=== PATIENT | male | born 1935 | race Caucasian/White ===

== ENCOUNTER 2016-09-21 15:41 | Emergency (ER) | payer OTHER ==
[~2016-09-21 15:41] MED LIST: CHILDRENS CHEWA81 MG PO; CLARITIN10 MG PO; COZAAR50 MG PO; FISH OIL 1,0001 EACH PO; GLUCOPHAGE500 MG PO; HCTZ25 MG PO; LEVAQUIN500 MG PO; LEVOTHYROXINE100 MCG PO; NIASPAN500 MG PO; TOPROL XL25 MG PO
== END 2016-09-21 19:32 | disposition home or self-care (01) ==
LOC: ER 15:41
DX: J06.9 Acute upper respiratory infection, unspecified (principal); I48.91 Unspecified atrial fibrillation; E11.9 Type 2 diabetes mellitus without complications; Z88.0 Allergy status to penicillin
CPT/HCPCS: 71020; 87400; 94664; 96372; 99283-25

== ENCOUNTER 2016-09-24 11:14 | Inpatient (IN) | payer OTHER ==
[~2016-09-24] VITALS: Ht 177.8 cm; Wt 92.0 kg
[2016-09-24 11:59] LABS: BASO # 0.2 10_X3_uL (0.0-0.1); BASO % 2.5 % (0.2-1.2); EOS # 0.1 10_X3_uL (0.0-0.5); EOS % 1.3 % (0.8-7.0); GRAN # 3.3 10_X3_uL (1.8-5.4); GRAN % 48.3 % (34.0-67.9); HEMATOCRIT 41.7 % (40-51); HEMOGLOBIN 15.1 g/dL (13.7-17.5); LYMPH # 2.6 10_X3_uL (1.3-3.6); MEAN CORPUSCULAR HEMOGLOBIN 33.3 pg (27.0-33.0); MEAN CORPUSCULAR HGB CONC 36.2 g/dL (32.0-36.0); MEAN CORPUSCULAR VOLUME 91.9 fL (79-92); MEAN PLATELET VOLUME 10.1 fl (7.5-11.5); MONO # 0.7 10_X3_uL (0.3-0.8); MONO % 9.9 % (5.3-12.2); PLATELET COUNT 151 x10_3/uL (163-337); RED BLOOD COUNT 4.54 x10_6/uL (4.6-6.1); WHITE BLOOD COUNT 6.8 x10_3/uL (4.2-9.1)
[2016-09-24 12:13] LABS: ALKALINE PHOSPHATASE 44 U/L (50-136); ALT/SGPT 12 U/L (7.53-40.17); AST/SGOT 21 U/L (6.66-35.34); CALCIUM 9.3 mg/dL (8.7-10.7); CARBON DIOXIDE 23 mmol/L (21-32); CREATININE 1.1 mg/dL (0.6-1.3); GLUCOSE,RANDOM 121 mg/dL (70-99); POTASSIUM 3.6 mmol/L (3.5-5.1); SODIUM 137 mmol/L (136-145); TOTAL PROTEIN 7.9 gm/dL (6.4-8.2)
[2016-09-24 12:15] LABS: BLOOD UREA NITROGEN 23 mg/dL (7-18)
[2016-09-24 21:25] LABS: URINE BILIRUBIN NEGATIVE (NEGATIVE); URINE BLOOD 1+ (NEGATIVE); URINE GLUCOSE (UA) NORMAL (NORMAL); URINE KETONE NEGATIVE (NEGATIVE); URINE LEUKOCYTE ESTERASE 1+ (NEGATIVE); URINE NITRATE NEGATIVE (NEGATIVE); URINE PROTEIN 1+ (NEGATIVE); UROBILINOGEN NORMAL mg/dL (<1.0)
[2016-09-24 21:48] LABS: URINE BACTERIA TRACE (NONE SEEN)
[2016-09-26 08:12] LABS: HEMATOCRIT 37.7 % (40-51); HEMOGLOBIN 13.3 g/dL (13.7-17.5); MEAN CORPUSCULAR HEMOGLOBIN 32.8 pg (27.0-33.0); MEAN CORPUSCULAR HGB CONC 35.3 g/dL (32.0-36.0); MEAN CORPUSCULAR VOLUME 92.9 fL (79-92); MEAN PLATELET VOLUME 9.7 fl (7.5-11.5); RED BLOOD COUNT 4.06 x10_6/uL (4.6-6.1); RED CELL DISTRIBUTION WIDTH 13.6 % (11.6-14.4); WHITE BLOOD COUNT 4.9 x10_3/uL (4.2-9.1)
[2016-09-26 08:30] LABS: ALBUMIN 3.7 gm/dL (3.4-5.0); ALKALINE PHOSPHATASE 38 U/L (50-136); ALT/SGPT 11 U/L (7.53-40.17); AST/SGOT 23 U/L (6.66-35.34); BILIRUBIN,TOTAL 0.69 mg/dL (0.0-1.0); BLOOD UREA NITROGEN 11 mg/dL (7-18); CALCIUM 8.6 mg/dL (8.7-10.7); CARBON DIOXIDE 24 mmol/L (21-32); CREATININE 0.9 mg/dL (0.6-1.3); GLUCOSE,RANDOM 123 mg/dL (70-99); POTASSIUM 3.2 mmol/L (3.5-5.1); SODIUM 139 mmol/L (136-145); TOTAL PROTEIN 7.3 gm/dL (6.4-8.2)
[2016-09-27 06:28] LABS: ALBUMIN 3.7 gm/dL (3.4-5.0); ALKALINE PHOSPHATASE 40 U/L (50-136); ALT/SGPT 13 U/L (7.53-40.17); AST/SGOT 23 U/L (6.66-35.34); BILIRUBIN,TOTAL 0.55 mg/dL (0.0-1.0); BLOOD UREA NITROGEN 14 mg/dL (7-18); CALCIUM 8.8 mg/dL (8.7-10.7); CARBON DIOXIDE 22 mmol/L (21-32); CREATININE 0.9 mg/dL (0.6-1.3); GLUCOSE,RANDOM 134 mg/dL (70-99); POTASSIUM 4.3 mmol/L (3.5-5.1); SODIUM 139 mmol/L (136-145); TOTAL PROTEIN 7.2 gm/dL (6.4-8.2)
[2016-09-27 06:32] LABS: BASO % 0.1 % (0.2-1.2); EOS # 0.1 10_X3_uL (0.0-0.5); EOS % 1.3 % (0.8-7.0); GRAN # 4.8 10_X3_uL (1.8-5.4); GRAN % 67.5 % (34.0-67.9); HEMATOCRIT 35.8 % (40-51); HEMOGLOBIN 12.7 g/dL (13.7-17.5); LYMPH # 1.6 10_X3_uL (1.3-3.6); LYMPH % 22.4 % (21.8-53.1); MEAN CORPUSCULAR HEMOGLOBIN 32.7 pg (27.0-33.0); MEAN CORPUSCULAR HGB CONC 35.5 g/dL (32.0-36.0); MEAN CORPUSCULAR VOLUME 92.3 fL (79-92); MONO # 0.6 10_X3_uL (0.3-0.8); MONO % 8.7 % (5.3-12.2); PLATELET COUNT 162 x10_3/uL (163-337); RED BLOOD COUNT 3.88 x10_6/uL (4.6-6.1); RED CELL DISTRIBUTION WIDTH 13.6 % (11.6-14.4); WHITE BLOOD COUNT 7.1 x10_3/uL (4.2-9.1)
[2016-09-28 07:43] LABS: BASO % 0.1 % (0.2-1.2); EOS # 0.2 10_X3_uL (0.0-0.5); EOS % 3.2 % (0.8-7.0); GRAN # 4.4 10_X3_uL (1.8-5.4); GRAN % 59.8 % (34.0-67.9); HEMATOCRIT 35.4 % (40-51); HEMOGLOBIN 12.4 g/dL (13.7-17.5); LYMPH # 2.2 10_X3_uL (1.3-3.6); LYMPH % 29.5 % (21.8-53.1); MEAN CORPUSCULAR HEMOGLOBIN 33.4 pg (27.0-33.0); MEAN CORPUSCULAR VOLUME 95.4 fL (79-92); MEAN PLATELET VOLUME 9.9 fl (7.5-11.5); MONO # 0.5 10_X3_uL (0.3-0.8); MONO % 7.4 % (5.3-12.2); PLATELET COUNT 168 x10_3/uL (163-337); RED BLOOD COUNT 3.71 x10_6/uL (4.6-6.1); RED CELL DISTRIBUTION WIDTH 13.8 % (11.6-14.4); WHITE BLOOD COUNT 7.3 x10_3/uL (4.2-9.1)
[2016-09-28 07:56] LABS: ALBUMIN 3.5 gm/dL (3.4-5.0); ALKALINE PHOSPHATASE 43 U/L (50-136); ALT/SGPT 12 U/L (7.53-40.17); AST/SGOT 20 U/L (6.66-35.34); BILIRUBIN,TOTAL 0.64 mg/dL (0.0-1.0); BLOOD UREA NITROGEN 11 mg/dL (7-18); CALCIUM 8.7 mg/dL (8.7-10.7); CARBON DIOXIDE 26 mmol/L (21-32); GLUCOSE,RANDOM 113 mg/dL (70-99); POTASSIUM 4.1 mmol/L (3.5-5.1); SODIUM 138 mmol/L (136-145); TOTAL PROTEIN 6.9 gm/dL (6.4-8.2)
[2016-09-29 05:40] LABS: URINE BILIRUBIN NEGATIVE (NEGATIVE); URINE BLOOD 2+ (NEGATIVE); URINE GLUCOSE (UA) NORMAL (NORMAL); URINE KETONE NEGATIVE (NEGATIVE); URINE LEUKOCYTE ESTERASE 2+ (NEGATIVE); URINE NITRATE POSITIVE (NEGATIVE); URINE PROTEIN TRACE (NEGATIVE); UROBILINOGEN NORMAL mg/dL (<1.0)
[2016-09-29 06:21] LABS: URINE BACTERIA FEW (NONE SEEN); URINE WBC >15 /[HPF] (0-3)
[2016-09-29 07:15] LABS: HEMATOCRIT 38.2 % (40-51); HEMOGLOBIN 13.5 g/dL (13.7-17.5); MEAN CORPUSCULAR HEMOGLOBIN 33.1 pg (27.0-33.0); MEAN CORPUSCULAR HGB CONC 35.3 g/dL (32.0-36.0); MEAN CORPUSCULAR VOLUME 93.6 fL (79-92); MEAN PLATELET VOLUME 9.8 fl (7.5-11.5); RED BLOOD COUNT 4.08 x10_6/uL (4.6-6.1); RED CELL DISTRIBUTION WIDTH 13.9 % (11.6-14.4); WHITE BLOOD COUNT 8.3 x10_3/uL (4.2-9.1)
[2016-09-29 07:35] LABS: ALBUMIN 3.8 gm/dL (3.4-5.0); ALKALINE PHOSPHATASE 45 U/L (50-136); ALT/SGPT 13 U/L (7.53-40.17); AST/SGOT 18 U/L (6.66-35.34); BILIRUBIN,TOTAL 0.85 mg/dL (0.0-1.0); BLOOD UREA NITROGEN 13 mg/dL (7-18); CALCIUM 9.1 mg/dL (8.7-10.7); CARBON DIOXIDE 25 mmol/L (21-32); CREATININE 0.9 mg/dL (0.6-1.3); GLUCOSE,RANDOM 126 mg/dL (70-99); POTASSIUM 3.8 mmol/L (3.5-5.1); SODIUM 138 mmol/L (136-145); TOTAL PROTEIN 7.5 gm/dL (6.4-8.2)
[2016-09-30 07:18] LABS: BASO % 0.3 % (0.2-1.2); EOS # 0.3 10_X3_uL (0.0-0.5); EOS % 4.8 % (0.8-7.0); GRAN # 4.2 10_X3_uL (1.8-5.4); GRAN % 61.2 % (34.0-67.9); HEMATOCRIT 39.1 % (40-51); LYMPH # 1.5 10_X3_uL (1.3-3.6); LYMPH % 22.3 % (21.8-53.1); MEAN CORPUSCULAR HEMOGLOBIN 33.1 pg (27.0-33.0); MEAN CORPUSCULAR HGB CONC 35.8 g/dL (32.0-36.0); MEAN CORPUSCULAR VOLUME 92.4 fL (79-92); MEAN PLATELET VOLUME 9.9 fl (7.5-11.5); MONO # 0.8 10_X3_uL (0.3-0.8); MONO % 11.4 % (5.3-12.2); PLATELET COUNT 235 x10_3/uL (163-337); RED BLOOD COUNT 4.23 x10_6/uL (4.6-6.1); RED CELL DISTRIBUTION WIDTH 13.7 % (11.6-14.4); WHITE BLOOD COUNT 6.9 x10_3/uL (4.2-9.1)
[2016-09-30 07:33] LABS: ALBUMIN 3.7 gm/dL (3.4-5.0); ALKALINE PHOSPHATASE 47 U/L (50-136); ALT/SGPT 13 U/L (7.53-40.17); AST/SGOT 17 U/L (6.66-35.34); BLOOD UREA NITROGEN 14 mg/dL (7-18); CALCIUM 9.1 mg/dL (8.7-10.7); CARBON DIOXIDE 22 mmol/L (21-32); CREATININE 0.9 mg/dL (0.6-1.3); GLUCOSE,RANDOM 138 mg/dL (70-99); POTASSIUM 3.9 mmol/L (3.5-5.1); SODIUM 136 mmol/L (136-145); TOTAL PROTEIN 7.6 gm/dL (6.4-8.2)
== END 2016-10-01 14:40 | disposition home or self-care (01) | DRG 689 ==
LOC: ER 11:14 → MS 13:47
PROVIDERS: Emergency Medicine; ADMIT Family Medicine
DX: N12 Tubulo-interstitial nephritis, not specified as acute or chronic (principal); J18.9 Pneumonia, unspecified organism; J44.0 Chronic obstructive pulmonary disease with (acute) lower respiratory infection; J44.1 Chronic obstructive pulmonary disease with (acute) exacerbation; J60 Coalworker's pneumoconiosis; H66.90 Otitis media, unspecified, unspecified ear; R53.1 Weakness; R42 Dizziness and giddiness; I10 Essential (primary) hypertension; B37.9 Candidiasis, unspecified; D64.9 Anemia, unspecified; N42.9 Disorder of prostate, unspecified; R33.9 Retention of urine, unspecified; R19.7 Diarrhea, unspecified; Z83.3 Family history of diabetes mellitus; Z80.9 Family history of malignant neoplasm, unspecified; Z82.49 Family history of ischemic heart disease and other diseases of the circulatory system; Z88.0 Allergy status to penicillin; Z79.899 Other long term (current) drug therapy; Z79.82 Long term (current) use of aspirin; Z79.84 Long term (current) use of oral hypoglycemic drugs
CPT/HCPCS: 36415; 71020; 80053; 80061; 81001; 82962; 83036; 83605; 83630; 83880; 85025; 87040; 87070; 87086; 87205; 87324; 87400; 94640; 94664; 96365; 99070; 99284; 99284-25; J7050

== ENCOUNTER 2016-09-24 11:14 | Emergency (ER) | payer OTHER | END 2016-09-24 13:47 | disposition other institution (70) | LOC: ER 11:14 | DX: R19.7 Diarrhea, unspecified (principal); J40 Bronchitis, not specified as acute or chronic; I95.1 Orthostatic hypotension; E87.2 Acidosis; E11.9 Type 2 diabetes mellitus without complications; Z87.442 Personal history of urinary calculi; I10 Essential (primary) hypertension; E03.9 Hypothyroidism, unspecified; N40.0 Benign prostatic hyperplasia without lower urinary tract symptoms; Z98.890 Other specified postprocedural states; Z88.0 Allergy status to penicillin; Z79.899 Other long term (current) drug therapy; Z79.82 Long term (current) use of aspirin; Z79.84 Long term (current) use of oral hypoglycemic drugs | CPT/HCPCS: 99284; 99284-25 ==